=== PATIENT | female | born 1965 | race Caucasian/White ===

== ENCOUNTER 2017-05-23 18:29 | Inpatient (IN) | payer BC, OTHER ==
[~2017-05-23] VITALS: Ht 154.9 cm; Wt 55.8 kg
[2017-05-23 19:45] VITALS: BP 158/81
--- NOTE | 2017-05-23 19:45 | NUR ---
Pre-Admission Note Patient was seen in intake office. Patient is noted to tremulous, verbalizing increased anxiety, and chills but stable at this time to continue with admission assessment. V/S noted as: 158/81, 99, 98.0, 18, 95%, 0/10. Policies on medication disposal explained and understood by patient. Will continue with admission process to unit.
[2017-05-23 20:04] LABS: *URINE HCG, QUAL NEGATIVE (NEGATIVE)
[2017-05-23] MEDS ORDERED: LORAZEPAM 2 MG/1 ML VIAL IM PRN (20:15)
[2017-05-23] MEDS ORDERED: diphenhydrAMINE 50 MG CAPSULE PO PRN (20:15)
[2017-05-23] MEDS ORDERED: ONDANSETRON ODT 4 MG TAB.RAPDIS SL PRN (20:15)
[2017-05-23] MEDS ORDERED: LOPERAMIDE HCL 2 MG CAPSULE PO PRN ×2 (20:15)
[2017-05-23] MEDS ORDERED: ACETAMINOPHEN 325 MG TABLET PO PRN (20:15)
[2017-05-23] MEDS ORDERED: MAGNESIUM HYDROXIDE 30 ML LIQUID UDC PO PRN (20:15)
[2017-05-23] MEDS ORDERED: CLONIDINE HCL 0.1 MG TABLET PO PRN (20:15)
[2017-05-23] MEDS ORDERED: MAG HYDROX/AL HYDROX/SIMETH 30 ML LIQUID UDC PO PRN (20:15)
[2017-05-23] MEDS ORDERED: HYDROXYZINE PAMOATE 25 MG CAPSULE PO PRN (20:15)
[2017-05-23] MEDS ORDERED: DICYCLOMINE HCL 20 MG TABLET PO PRN (20:15)
[2017-05-23] MEDS ORDERED: THIAMINE HCL 200 MG/2 ML VIAL IM ONE (20:15)
[2017-05-23] MEDS ORDERED: IBUPROFEN 400 MG TABLET PO PRN (20:15)
[2017-05-23] MEDS ORDERED: MIRALAX 17 GM POWD.PACK PO PRN (20:15)
[2017-05-23] MEDS ORDERED: LORAZEPAM 1 MG TABLET PO PRN (20:15)
[2017-05-23] MEDS ORDERED: ONDANSETRON 4 MG/2 ML VIAL IM PRN (20:15)
[2017-05-23 20:16] LABS: *AMPHETAMINE, URINE NEGATIVE (NEGATIVE); *BARBITURATE, URINE NEGATIVE (NEGATIVE); *CANNABINOID, URINE NEGATIVE (NEGATIVE); *COCCAINE, URINE NEGATIVE (NEGATIVE); *OPIATE, URINE NEGATIVE (NEGATIVE); *PHENCYCLIDINE SCREEN,URINE NEGATIVE (NEGATIVE)
[2017-05-23 20:26] VITALS: BP 125/90
--- NOTE | 2017-05-23 20:35 | NUR ---
PRN Medication Administration Patient noted with a CIWA of 17 upon admission. PRN Ativan 2mg administered as per orders, including PRN Zofran for increased nausea. Will continue to monitor.
[2017-05-23] MEDS ORDERED: ONDANSETRON ODT 4 MG TAB.RAPDIS ONE (20:42)
[2017-05-23] MEDS ORDERED: LORAZEPAM 1 MG TABLET ONE (20:43)
[2017-05-23 20:58] LABS: BASOPHILS % (AUTO) 0.5 % (0.0-2.0); EOSINOPHILS % (AUTO) 0.7 % (0.0-7.0); HEMATOCRIT 43.3 % (37-47); HEMOGLOBIN 14.6 G/DL (12.0-16.0); LYMPHOCYTES # (AUTO) 0.9 K/UL (0.8-4.8); LYMPHOCYTES % (AUTO) 19.7 % (20.5-51.5); MEAN CORPUSCULAR HGB CONC 34 g/dL (32.0-37.0); MEAN CORPUSCULAR VOLUME 91.6 FL (81.0-99.0); MONOCYTES # (AUTO) 0.4 K/UL (0.1-1.30); MONOCYTES % (AUTO) 7.6 % (0.0-11.0); NEUTROPHILS # (AUTO) 3.5 K/UL (1.8-8.9); NEUTROPHILS % (AUTO) 71.5 % (38.5-71.5); PLATELET COUNT (AUTO) 240 K/UL (150-450); RED BLOOD CELL COUNT(AUTO) 4.72 MIL/UL (4.2-5.4); WHITE BLOOD COUNT (AUTO) 4.8 K/UL (4.0-11.2)
[2017-05-23 21:04] LABS: ALANINE AMINOTRANSFERASE 78 U/L (14-59); ALKALINE PHOSPHATASE 103 U/L (50-136); AMYLASE 46 U/L (25-115); ASPARTATE AMINOTRANSFERASE 83 U/L (15-37); BILIRUBIN,TOTAL 0.8 mg/dL (0.2-1.0); CARBON DIOXIDE 29 mmol/L (21-32); CHLORIDE 95 mmol/L (98-107); CREATININE 0.8 mg/dL (0.6-1.3); GLUCOSE 123 mg/dL (74-106); LIPASE 336 U/L (73-393); MAGNESIUM 1.7 mg/dL (1.8-2.4); POTASSIUM 3.3 mmol/L (3.5-5.1); TOTAL PROTEIN, SERUM 7.7 g/dL (6.4-8.2); UREA NITROGEN, BLOOD 18 mg/dL (7-18)
[2017-05-23 21:06] LABS: ETHANOL < 3 MG/DL (0-0)
[2017-05-23 21:15] LABS: THYROID STIMULATING HORMONE 1.907 mIU/mL (0.358-3.740)
[2017-05-23] MEDS ORDERED: MAGNESIUM OXIDE 400 MG TABLET PO ONE (21:15)
[2017-05-23] MEDS ORDERED: POTASSIUM CHLORIDE 20 MEQ TAB.PRT.SR PO ONE (21:15)
--- NOTE | 2017-05-23 21:15 | NUR ---
Admission Patient is a 51 year old female, from [place], presented to [facility] to safely received treatment for her substance use. She was escorted on to unit at 2000 by intake department. Skin check and body check rendered with no skin break down noted. Patient was able to provide urine drug screen upon arrival to the unit. Patient is alert and oriented x4. Breathing is even and non labored. Vital signs rendered and noted as: 125/90, 99, 18, 98.0, 100%, 0/10. Patients height noted at 5'1 and weight noted at 123lbs. Patient verbalized no known allergies, wishes to be full code, following a regular diet. Speech is clear and able to make good eye contact. Patient is noted to be tremulous, verbalizing increased nausea, increased anxiety, and dizziness all due to her withdrawals. Lung sounds clear with no cough noted. LBM noted 05/20/17. BUE and BLE all noted WNL with no edema noted. Patient is ambulatory with no assistance needed. Patient denies suicidal and homicidal ideations. Patient is able to verbal I havent eaten a full meal in the past couple of days due to my withdrawal but Bettina been drinking as much as I can. Patient explains of bring admitted to [facility] on 05/21/17 and left AMA with her the day of admission to [facility] 05/23/17. Her drove her from [facility] directly to [facility]. Patient explained her AMA due to "I just didn't feel safe there." Patient lives at home with her and owns a [employer]. Patient verbalizes only past medical history of insomnia. At home she currently is using Benadryl 100mg sometimes taking up to 200mg QHS. Patient verbalizes her use as: 1. ETOH- Red or White Wine, starting at the age of [age] years old but the last 2 years her drinking became an issue, within the last 6 months she noticed herself binge drinking, Drinking 2 bottles of 750mls daily, PO, for the past 6 months. Her last drink noted to be 05/20/17 2230 drinking 2 bottles of 750mls of Red wine. Patient is able to verbalize signs and symptoms of withdrawal as "nausea, vomiting, diarrhea, chills, tremors, hallucinations, headaches, no appetite, lethargic. Patient was previously treated at [facility] in [place] [id number] for her Alcohol Use. Admitting CIWA noted to be 17. All information relayed to MD with orders placed including PRN Medications for increased signs and symptoms of withdrawal. Labs to be rendered, taper medications to be reassessment tomorrow 04/29/17. Will administer medications accordingly. All needs attended to promptly. Will continue plan of care as ordered.
--- NOTE | 2017-05-23 21:36 | NUR ---
PRN Medication Reassessment/MD Communication/Labs Patients labs resulted and Potassium noted to be 3.3 and Magnesium 1.7. MD aware with K-Dur 40meq x1 now and Magnesium 400mg x1 now. Patient is able to verbalize PRN Ativan and Zofran assisted in minimizing withdrawal symptoms. Patients CIWA noted to be 6. All needs attended to promptly. Will continue plan of care.
[2017-05-24 00:24] VITALS: BP 105/61
[2017-05-24] MEDS: LORAZEPAM 1 MG TABLET PO PRN ×2 (00:33→09:06)
--- NOTE | 2017-05-24 00:35 | NUR ---
PRN Medication Administration Patient noted awake and verbalizing increased anxiety, increased chills with sweats, and agitation. Patient is also verbalizing inability falling asleep and staying asleep. CIWA noted to be 9. PRN Ativan 1mg and PRN Benadryl administered. Will continue to monitor.
[2017-05-24] MEDS ORDERED: LORAZEPAM 1 MG TABLET ONE (00:41)
[2017-05-24] MEDS ORDERED: diphenhydrAMINE 50 MG CAPSULE ONE (00:41)
--- NOTE | 2017-05-24 01:35 | NUR ---
PRN Medication Reassessment Patient is noted in bed sleeping. Breathing even and non labored. No signs of pain or discomfort noted as evidence of no facial grimacing. Patients respiration noted to be 14. CIWA is not able to be completed as per order. PRN Ativan 1mg and PRN Benadryl noted to be effective. Patient is able to rest with no interruptions noted. Will continue to monitor.
[2017-05-24 04:44] VITALS: BP 106/65
--- NOTE | 2017-05-24 06:56 | NUR ---
End of Shift Patient is in bed sleeping. Breathing even and non labored. No signs of pain or discomfort noted. Patient is a 51 year old female, admitted 05/23/17 for ETOH Dependence under the care of Dr. Thomas. Patient is currently receiving PRN medications for increased withdrawals with MD to reassess patient. No Known allergies, full code, regular diet, skin noted intact, placed on fall and seizure precautions. Patient received PRN Ativan 2mgn for CIWA of 17 upon admission with Zofran for nausea. Medications effective. CIWA noted to be 6. KDUR 40meq x1 and Mag Ox 400mg x1 ordered due to abnormal labs. Patient then noted with CIWA of 9 with PRN Ativan 1mg and PRN Benadryl administered for sleep. With medications noted to be effective. Patient slept a total of 6 hours. All needs attended to promptly. Will endorse to continue plan of care as ordered.
--- NOTE | 2017-05-24 07:13 | NUR ---
START OF SHIFT NOTE: received pt from operations supervisor 2nd shift nurse, pt is very liable, emotional and anxious. pt's last ciwa 9 related to anxiety. pt is [facility] for [facility] withdrawal/dependence. will encourage pt to join activities and group. pt was placed on seizure precautions. will monitor pt for any changes
[2017-05-24] MEDS ORDERED: DIPH25CA83 PO (07:27)
[2017-05-24 09:00] VITALS: BP 115/77
[2017-05-24] MEDS ORDERED: MULTIVITAMINS,THERAPEUTIC TABLET PO SCH (09:00)
[2017-05-24] MEDS ORDERED: TUBERCULIN,PURIF.PROT.DERIV. 5 TU/0.1 ML TEST ID ONE (09:00)
[2017-05-24] MEDS ORDERED: THIAMINE HCL 100 MG TABLET PO SCH (09:00)
[2017-05-24] MEDS ORDERED: FOLIC ACID 1 MG TABLET PO SCH (09:00)
--- NOTE | 2017-05-24 09:06 | NUR ---
PRN ADMINISTRATION: PT WAS EXTREMELY ANXIOUS, NO WITHDRAWAL SYMPTOMS NOTED PT IS CRYING AND AGITATED. RECEIVED VERBAL ORDER FROM MD TO GIVE 1 MG ATIVAN UNTIL HE COMES TO SEE HER.
--- NOTE | 2017-05-24 09:30 | NUR ---
PRN-REASSESSMENT: PT IS STILL AGITATED AND ANXIOUS, STATING SHE WANTS TO HOME AND WANTS TO LEAVE AMA, TO MAKE PT MORE COMFORTABLE AND HAVE NEEDS MET WE MOVED ROOMS SO SHE CAN HAVE MORE PRIVACY AND WANTED TO MAKE A CALL TO TO COME GET HER. CONVERSATION BETWEEN HER AND HER WAS IN THE DIRECTION OF HE FEEL THAT THIS IS THE PLACE FOR HER, CLIENT STARTED YELLING AT HER .
--- NOTE | 2017-05-24 12:00 | NUR ---
PT KEPT PACING BACK TO THE NURSING STATION SAYING SHE WANTED TO LEAVE AMA, SPOKE WITH ADMINISTRATION AND WAS CONSIDERING STAYING OVERNIGHT TO BE MEDICALLY CLEARED FOR DISCHARGE, PT CONTINUED FOR ATIVAN TO CALM HER DOWN BECAUSE SHE WAS SO ANXIOUS. MD WITH RECOMMENDATION TO PLACE A CALL TO PSYCHIATRIST.
[2017-05-24] MEDS ORDERED: LORAZEPAM 1 MG TABLET PO SCH (13:00)
--- NOTE | 2017-05-24 13:00 | NUR ---
RECEIVED X1 ORDER OF SEROQUEL FOR AGITATION AND ANXIETY.
[2017-05-24] MEDS ORDERED: QUETIAPINE FUMARATE 25 MG TABLET PO ONE (13:15)
[2017-05-24 15:00] VITALS: BP 125/88
--- NOTE | 2017-05-24 15:27 | NUR ---
AMA NOTE: PT LEFT THE UNIT WITH ALL BELONGINGS, PT ATTEMPTED TO WALK OFF THE UNIT WITHOUT SIGNING AMA PAPERWORK. PT WAS EXTREMELY AGITATED AND UNWILLING TO LISTEN TO STAFF. SHE WAS AGITATED THAT HER WAS NOT ANSWERING THE PHONE, SHE WAS SO ANXIOUS AND AGITATED AND DECIDED THAT SHE WANTED TO LEAVE. PT LEFT WITH ALL PERSONAL BELONGING, COMMUNITY RESOURCES.
[2017-05-25 06:06] LABS: HEPATITIS B SURFACE AG Negative (Negative)
[2017-05-25] MEDS ORDERED: LORAZEPAM 1 MG TABLET PO SCH (09:00)
[2017-05-26] MEDS ORDERED: LORAZEPAM 1 MG TABLET PO SCH (09:00)
[2017-05-27] MEDS ORDERED: LORAZEPAM 1 MG TABLET PO SCH (09:00)
[2017-05-28] MEDS ORDERED: LORAZEPAM 1 MG TABLET PO SCH (09:00)
== END 2017-05-24 17:04 | disposition left against medical advice (07) | DRG 894 ==
LOC: SRC 19:03
PROVIDERS: ADMIT Internal Medicine; ATTEND Internal Medicine
PROC: HZ2ZZZZ Detoxification Services for Substance Abuse Treatment (ICD-10-PCS; principal; 2017-05-23)
DX: F10.239 Alcohol dependence with withdrawal, unspecified (principal); Z98.84 Bariatric surgery status
CPT/HCPCS: 36415; 71010; 80307; 83690; 83735; 84443; 84703; 85025; 86592; 86705; 86803; 87340; 87806; A4663; G0480; J3411; Q0162; Q0163